=== PATIENT | female | born 1990 | race Two or more races ===

== ENCOUNTER 2018-10-06 20:08 | Emergency (ER) | payer OTHER ==
[~2018-10-06] VITALS: Ht 167.6 cm; Wt 97.5 kg
[2018-10-06] MEDS ORDERED: HYDROCODONE/ACETAMINOPHEN 5/325MG TABLET PO ONE (22:15)
[2018-10-06 22:58] VITALS: BP 127/81
== END 2018-10-06 23:00 | disposition home or self-care (01) ==
LOC: ER 20:08
DX: K08.89 Other specified disorders of teeth and supporting structures (principal); F12.90 Cannabis use, unspecified, uncomplicated; F17.210 Nicotine dependence, cigarettes, uncomplicated
CPT/HCPCS: 99283